=== PATIENT | male | born 1995 | race Caucasian/White ===

== ENCOUNTER 2024-10-15 20:51 | Emergency (ER) | payer SELFPAY ==
--- OUTSIDE RECORDS SUMMARY | 2024-10-15 20:54 | XMS REPORT | Continuity of Care Document ---
Author Name Unknown Address [address] [place] [address] [facility] Address [address] [facility] [address] [place] [address] Care Team Providers Care Cad Developer Name Role Phone Pcp, Patient Does Not Have A Primary Care Physic lucy MEI HENNING Attending Clinician UnaKAYLI Costa Attending Clinician Unavailabl e LAB47 Attending Clinician Unavailable WILSON HUTCHINSON Attending Clinician Unavailable Campaigns, Generic Provider Attending Clinician Unavailable Jay Jay Sanon Attending Clinician [phone] Bertha Gilbert Attending Clinician Unknown, Attending Attending Clinician Unavailab BERTHA Vega Attending Clinician Unavailable Frank Montenegro Attending Clinician [phone] FRANK CROCKER Attending Clinician Unavailable Merissa Attending Clinician Unavailable Merissa Admitting Clinician Unavailable Payers Payer Name Policy Type Policy Number Effective Date Expirati on Date Source [employer] 2 [id number] 00:00:00 [facility] [id number] 2005 00:00:00 Problems Condition Name Condition Details Condition Category Status Onset Date Resolution Date Last Treatment Date Treating Clinician Comments Source Vasculitis Vasculitis Disease Active 09-03 00:00: 00 Domitila dunn Allergies, Adverse Reactions, Alerts Allergy Name Allergy Type Status Severity Reaction(s) Onset Date Inactive Date Treating Clinician Comments Source Penicill ins Propensi ty to adverse reaction s Active Hives 09-03 00:00: 00 Domitila Cruza mona PENICILL IN DRUG INGREDI Active High Hives 420 00:00: 00 [facility] Penicill in Propensi ty to adverse reaction s Active Hives 06-27 00:00: 00 [facility] PENICILL INS Allergy to substanc e Active Mild to moderate Hives [facility] NO KNOWN ALLERGIE S Drug Class Active [facility] Social History Social Habit Start Date Stop Date Quantity Comments Source Sexual orientation Georgette ren iBll - External History of Social function 2024-09-15 00:00:00 2024-09-15 00:00:00 Domitila Khan - External Sex 2024-09-01 12:44:11 2024-09-01 12:44:11 Male (finding) Domitila Khan - External History of tobacco use 2024-07-22 00:00:00 Cigarette Smoker Domitila Khan - External Exposure to SARS-CoV-2 (event) 2022-06-17 00:00:00 2022-06-27 13:28:00 Not sure [facility] Sex assigned at 1995 00:00:00 1995 00:00:00 Domitila Cerrato External Smoking Status Start Date Stop Date Source Tobacco smoking consumption unknown [facility] Ex-smoker 2024-09-03 00:00:00 2024-09-03 00:00:00 Domitila Khan - External Medications Ordered Medication Name Filled Medication Name Start Date Stop Date Current Medication? Ordering Clinician Indication Dosage Frequency Signature (SIG) Comments Components Source predniSONE (DELTASONE) 10 MG oral tablet 09-15 00:00: 00 Yes [id number] Take 5 tablets for 8 days, then take 4 tablets daily for 8 days, then take 3 tablets daily for 8 days, then take 2 tablets daily for 8 days, then take 1 tablet daily for 8 days.. Domitila dunn Mupirocin (BACTROBAN) 2 % apply externally Ointment 09-15 00:00: 00 Yes [id number] Apply to affected areas. Domitila dunn predniSONE (DELTASONE) 20 MG oral tablet 09-09 00:00: 00 09-17 04:59 :00 Yes [id number] Take 2 tablets (40 mg total) by mouth daily for 3 days, THEN 1 tablet (20 mg total) daily for 2 days, THEN 0.5 tablets (10 mg total) daily for 2 days. Domitila dunn NaCl 0.9% (NS) bolus infusion 1,000 mL 08-24 07:15: 00 08-24 07:23 :00 No 1000mL at 999 mL/hr, 1,000 mL, IV Infusion, ONCE, 1 dose, On Fri08/24/24 at 0215, ALVERTO [facility] ketorolac (TORADOL) injection 30 mg 08-24 07:00: 00 08-24 06:28 :00 No 30mg 30 mg, Slow IV Push, ONCE, 1 dose, On Fri08/24/24 at 0200, Routine [facility] methylPREDN ISolone sod succ (SOLU-MEDRO L (PF)) injection 80 mg 08-24 06:30: 00 08-24 06:29 :00 No 80mg 80 mg, Intravenou s, ONCE, 1 dose, [facility] Fri08/24/24 [facility] 0130[facility] mg tablet 08-24 00:00: 00 08-30 04:59 :00 Yes [id number] 50mg Take 1 tablet by mouth in the morning for 5 days. [facility] Doxycycline Monohydrate 100 MG oral Capsule 08-23 00:00: 00 09-09 00:00 :00 No take one (1) capsule(s) by mouth twice a day 10 days. Domitila dunn predniSONE (DELTASONE) 20 MG oral tablet 06-22 00:00: 00 09-09 00:00 :00 No 40mg QD Take 2 tablets (40 mg total) by mouth daily. Domitila Khan - Externa l ketorolac (TORADOL) injection 30 mg 08-05 16:56: 00 08-05 17:08 :00 No [id number] 30mg 30 mg, Intramuscu lar, ONCE, 1 dose, On Fri08/06/23 at 1200, Routine [facility] methocarbam oL 500 mg tablet 08-05 00:00: 00 08-11 04:59 :00 No [id number] 500mg Take 1 tablet by mouth 4 (four) times daily as needed for Pain (scale 7-10) for up to 5 days. [facility] azithromyci n 500 mg tablet 06-27 00:00: 00 07-03 04:59 :00 No [id number] 500mg Take 1 tablet by mouth in the morning for 5 days. [facility] escitalopra m 10 mg tablet TAKE 1 TABLET BY MOUTH EVERY DAY escitalopra m 10 mg tablet TAKE 1 TABLET BY MOUTH EVERY DAY No escitalopr am 10 mg tablet TAKE 1 TABLET BY MOUTH EVERY DAY [facility] escitalopra m 5 mg tablet Take 1 tablet every day by oral route for 30 days. escitalopra m 5 mg tablet Take 1 tablet every day by oral route for 30 days. No escitalopr am 5 mg tablet Take 1 tablet every day by oral route for 30 days. [facility] Vital Signs Vital Name Observation Time Observation Value Comments S ource Systolic blood pressure 2024-09-09 15:51:00 112 mm[Hg] Domitila pike - External Diastolic blood pressure 2024-09-09 15:51:00 80 mm[Hg] Domitila pike - External Heart rate 2024-09-09 15:51:00 88 /min Jared Khan - External Body temperature 2024-09-09 15:51:00 36.83 Vita Domitila Khan - External Respiratory rate 2024-09-09 15:51:00 18 /min Domitila Khan - External Body height 2024-09-09 15:51:00 175.3 cm Gila ey Seybold - External Body weight 2024-09-09 15:51:00 97.07 kg Gila ey Seybold - External BMI 2024-09-09 15:51:00 31.60 kg/m2 Gila ey Seybold - External Oxygen saturation in Arterial blood by Pulse oximetry 2024-09-09 15:51:00 98 /min Domitila Stevensono ld - External Systolic blood pressure 2024-09-03 14:50:00 124 mm[Hg] Domitila Mitchellybo ld - External Diastolic blood pressure 2024-09-03 14:50:00 86 mm[Hg] Domitila Mitchellybo ld - External Heart rate 2024-09-03 14:50:00 80 /min Jared irvin Seybold - External Body temperature 2024-09-03 14:50:00 36.61 Vita Domitila Mitchellybold - External Respiratory rate 2024-09-03 14:50:00 18 /min Domitila Mitchellybold - External Body height 2024-09-03 14:50:00 175.3 cm Glia king Seybold - External Body weight 2024-09-03 14:50:00 97.523 kg Gila king Seybold - External BMI 2024-09-03 14:50:00 31.75 kg/m2 Gila king Seybold - External Oxygen saturation in Arterial blood by Pulse oximetry 2024-09-03 14:50:00 99 /min Domitila Stevensono ld - External Systolic blood pressure 2024-08-24 07:22:00 154 mm[Hg] [facility] Diastolic blood pressure 2024-08-24 07:22:00 117 mm[Hg] [facility] Heart rate 2024-08-24 07:22:00 72 /min [facility] Body temperature 2024-08-24 07:22:00 36.67 Vita [facility] Respiratory rate 2024-08-24 07:22:00 17 /min [facility] Oxygen saturation in Arterial blood by Pulse oximetry 2024-08-24 07:22:00 99 /min [facility] Body height 2024-08-24 05:44:00 175.3 cm [facility] Body weight 2024-08-24 05:44:00 97.523 kg [facility] BMI 2024-08-24 05:44:00 31.75 kg/m2 [facility] Systolic blood pressure 2023-08-06 16:26:00 135 mm[Hg] [facility] Diastolic blood pressure 2023-08-06 16:26:00 82 mm[Hg] [facility] Heart rate 2023-08-06 16:26:00 70 /min [facility] Body temperature 2023-08-06 16:26:00 36.72 Vita [facility] Respiratory rate 2023-08-06 16:26:00 18 /min [facility] Body height 2023-08-06 16:26:00 175.3 cm [facility] Body weight 2023-08-06 16:26:00 98.431 kg [facility] BMI 2023-08-06 16:26:00 32.05 kg/m2 [facility] Oxygen saturation in Arterial blood by Pulse oximetry 2023-08-06 16:26:00 100 /min [facility] Systolic blood pressure 2022-06-27 18:36:00 133 mm[Hg] [facility] Diastolic blood pressure 2022-06-27 18:36:00 86 mm[Hg] [facility] Heart rate 2022-06-27 18:36:00 73 /min [facility] Body temperature 2022-06-27 18:36:00 37 Vita [facility] Respiratory rate 2022-06-27 18:36:00 16 /min [facility] Body height 2022-06-27 18:36:00 175 cm [facility] Body weight 2022-06-27 18:36:00 94.49 kg [facility] BMI 2022-06-27 18:36:00 30.85 kg/m2 [facility] Oxygen saturation in Arterial blood by Pulse oximetry 2022-06-27 18:36:00 99 /min [facility] Procedures Procedure Date / Time Performed Performing Clinician Source COMP. METABOLIC PANEL ([id number]) 2024-08-24 06:20:00 Jay Jay Villalta [facility] SEDIMENTATION RATE 2024-08-24 06:20:00 Jay Jay Villalta [facility] CBC WITH DIFF 2024-08-24 06:20:00 Jay Jay Villalta [facility] PROTHROMBIN TIME / INR 2024-08-24 06:20:00 Minda Villalta cca [facility] ACTIVATED PARTIAL THRMPLAS COLLIN 2024-08-24 06:20:00 Jay Jay Villalta [facility] RAPID STREP SCREEN FOR GROUP A 2024-08-24 06:20:00 Jay Jay Villalta [facility] POCT URINALYSIS 2023-08-06 17:20:00 [facility] 2022-06-27 18:41:00 Unknown, Atte nding [facility] Encounters Start Date/Time End Date/Time Encounter Type Admission Type Attending [facility] Care Facility Care Department Encounter ID Source 2025-01-05 13:30:00 2025-01-05 13:30:00 Outpatient EMI HENNING [id number] [facility] 2024-11-24 13:30:00 2024-11-24 13:30:00 Outpatient KAYLI GARCIA [id number] [facility] 2024-10-27 14:00:00 2024-10-27 14:00:00 Outpatient EMI HENNING [id number] [facility] 2024-09-15 11:40:00 2024-09-15 11:40:00 Outpatient LAB47 DOMITILA NIEVES [id number] Domitila [facility] 2024-09-15 11:00:00 2024-09-15 11:00:00 Outpatient [facility]ENN[facility] [id number] [facility] 2024-09-09 11:00:00 2024-09-09 11:00:00 Outpatient WILSON HUTCHINSON [id number] [facility] 2024-09-03 10:00:00 2024-09-03 10:00:00 Outpatient WILSON HUTCHINSON [id number] Domitila Khan 2024-09-03 00:00:00 2024-09-03 00:00:00 Outpatient WILSON HUTCHINSON [id number] Domitila Khan 2024-09-01 00:00:00 2024-09-01 11:04:02 Letter (Out) Campaigns, Generic Provider Campaigns, Generic Provider [facility] (JYOTSNA) 1..840.114 350.1.13.10 [id number] [id number] [facility] 2024-08-24 00:46:00 2024-08-24 02:29:00 Emergency X Jay Jay Villalta [facility] 1..840.114 350.1.13.10 4.2.7.2.686 [id number] [facility] 2023-08-06 11:00:00 2023-08-06 11:20:00 Urgent Care Bertha Ortiz Unknown, Attending [facility] 1..840.114 350.1.13.10 4.2.7.2.686 [id number] [facility] 2023-08-06 11:00:00 2023-08-06 11:00:00 Outpatient R BERTHA ORTIZ [facility] [id number] [facility] 2022-06-27 14:20:00 2022-06-27 14:40:00 Urgent Care Frank Crocker Unknown, Attending [facility] 1..840.114 350.1.13.10 4.2.7.2.686 [id number] [facility] 2022-06-27 14:20:00 2022-06-27 14:20:00 Outpatient R FRANK CROCKER [facility] [id number] [facility] Results Test Description Test Time Test Comments Results Result Co mments Source [id number][facility]2024-08-24 07:03:31* Test Item Value Reference Range Interpretation Comme nts NA (test code = 1761213850) 140 mmol/L 135-145 K (test code = 7651419480) 4 mmol/L 3.5-5.0 CL (test code = 9197267489) 105 mmol/L 98-108 CO2 TOTAL (test code = 8329092158) 26 mmol/L 23-31 AGAP (test code = 0285677613) 9 2-16 BUN (test code = 9237529775) 17 mg/dL 7-23 GLUCOSE (test code = 5132082227) 99 mg/dL 70-110 CREATININE (test code = 2160-0) 0.91 mg/dL 0.60-1.25 TOTAL BILI (test code = 7731092439) 0.5 mg/dL 0.1-1.1 CALCIUM (test code = 2048125234) 9.3 mg/dL 8.6-10.6 T PROTEIN (test code = 8572586021) 7.7 g/dL 6.3-8.2 ALBUMIN (test code = 7162323352) 4.6 g/dL 3.5-5.0 ALK PHOS (test code = 8305804855) 83 U/L 34-122 ALTv (test code = 1742-6) 19 U/L 5-50 AST(SGOT) (test code = 3279465322) 18 U/L 13-40 eGFR (test code = 37762-4) 116.3 mL/min/1.73m2 CKD-EPI eGFR (20 21). Assuming creatinine has been stable day-to-day for at least three months, the eGFR indicates Category G1 (>= 90 mL/min/1.73 m2) [facility] / [id number] 07:00:09* Test Item Value Reference Range Interpretation Comme nts PROTIME PATIENT (test code = 5964-2) 11.7 10.1-12.6 INR (test code = 6301-6) 1 <=4.5 Normal INR <1.1; Warfarin Therapeutic range 2.0 to 3.0 or 2.5 to 3.5, depending upon the indications. Lab Interpretation (test code = 05889-4) Normal [facility] [id number] 07:00:09* Test Item Value Reference Range Interpretation Comme nts APTT Patient (test code = 3173-2) 34 26-36 JOAQUINA (test code = JOAQUINA) The [facility] patient population mean normal value for aPTT is 30 seconds. Lab Interpretation (test code = 34446-3) Normal [facility] [id number] 06:50:26* Test Item Value Reference Range Interpretation Comme nts WBC (test code = 6690-2) 9.91 4.20-10.70 RBC (test code = 789-8) 4.85 4.26-5.52 HGB (test code = 718-7) 14.3 g/dL 12.2-16.4 HCT (test code = 4544-3) 42.1 % 38.4-49.3 MCV (test code = 787-2) 86.8 fL 81.7-95.6 MCH (test code = 785-6) 29.5 pg 26.1-32.7 MCHC (test code = 786-4) 34 g/dL 31.2-35.0 RDW-SD (test code = 19633-5) 38.9 fL 38.5-51.6 RDW-CV (test code = 788-0) 12.3 % 12.1-15.4 PLT (test code = 777-3) 309 150-328 MPV (test code = 36876-4) 10.9 fL 9.8-13.0 NRBC/100 WBC (test code = 8408405586) 0 0.0-10.0 NRBC x10^3 (test code = 7174840065) See_Comment [Automated me ssage] The system which generated this result transmitted reference range: 10*3/?L. The reference range was not used to interpret this result as normal/abnormal. GRAN MAT (NEUT) % (test code = 770-8) 56.3 % IMM GRAN % (test code = 2295818193) 0.2 % LYMPH % (test code = 736-9) 32.3 % MONO % (test code = 5905-5) 7.9 % EOS % (test code = 713-8) 2.6 % BASO % (test code = 706-2) 0.7 % GRAN MAT x10^3(ANC) (test code = 4683297229) 5.58 10*3/uL 1.99-6.95 IMM GRAN x10^3 (test code = 7414025413) 0.00-0.06 LYMPH x10^3 (test code = 731-0) 3.2 10*3/uL 1.09-3.23 MONO x10^3 (test code = 742-7) 0.78 10*3/uL 0.36-1.02 EOS x10^3 (test code = 711-2) 0.26 10*3/uL 0.06-0.53 BASO x10^3 (test code = 704-7) 0.07 10*3/uL 0.01-0.09 [facility] Ur[facility] W Specific [id number] 17:20:00* Test Item Value Reference Range Interpretation Comme nts POCT U SP GRAV (test code = 3255) 1.015 mg/dl 1.005-1.025 POCT PH U (test code = 3254) 5 mg/dl 5-8 POCT U LEUK EST (test code = 3263) NEGATIVE Negative - Negative POCT U NIT (test code = 3262) NEGATIVE Negative - Negative POCT U PROT (test code = 3259) TRACE Negative - Negative POCT U GLU (test code = 3256) NORMAL Negative - Negative POCT U KETONE (test code = 3258) NEGATIVE Negative - Negative POCT U UROBILI (test code = 3260) NORMAL 0.2-1 POCT U BILI (test code = 3261) NEGATIVE Negative - Negative POCT U BLD (test code = 3257) NEGATIVE Negative - Negative POCT U COLOR (test code = 3266) POCT U APPEAR (test code = 3267) JOAQUINA (test code = JOAQUINA) accurate developme nt and interpretation of all internal controls Lab Interpretation (test code = 67754-3) [facility] MO[facility] [id number] 18:44:53* Test Item Value Reference Range Interpretation Comme nts POCT Molecular Strep (test c ode = 21506-0) Positive Negative A Lab Interpretation (test cod e = 00287-6) Abnormal [facility] Notes Date/Time Note Provider Source 2024-09-15 11:13:17 Chief Complaint Patient presents with Skin Problem Mariangel Evens Mariangel [facility] 2024-09-09 10:55:12 Chief Complaint Patient presents with Follow-up Needs to get work clearance. Adia Pagan LVN [facility] 2024-09-03 09:53:46 Chief Complaint Patient presents with ER F/U ER follow up vasculitis. Adia Pagan LVN T [facility] 2024-08-24 02:23:59 Pt given printed and verbal discharge instructions regarding vasculitis limited to skin Prescriptions provided: predniSONE 50 mg tablet Pt verbalized understanding of instructions, pt awake alert oriented, resp reg unlabored, skin w/d, color appropriate for race, moves all ext well,pt encouraged to follow up with pcp Advised to seek medical attention for new/prolonged/worsening of symptoms No adverse reaction to meds given in ER noted upon discharge PIV d'cd, dressing to site, catheter in tact. Awake, alert oriented, resp reg unlabored, skin w/d, pt leaving amb with steady gait, in no apparent distress Liana Vega RN [facility] 2024-08-24 00:43:31 Patient comes in with a rash to both lower legs that started on Friday of last week. Patient now reports they are itching. Skin p/w/d, rr equla and non labored. A&Ox4. Seen at today, and given doxycycline, patient took 2 today but it is not getting better. ALIAT Tatyana Snider RN [facility]
[2024-10-15] MEDS ORDERED: NA CHLORIDE 0.9% 1,000 ML ONE (21:16)
[2024-10-15 21:41] LABS: Absolute Lymphocytes (CBC) 0.9 K/uL (0.7-4.9); Hematocrit 43.7 % (39.6-49.0); Hemoglobin 15.1 g/dL (13.6-17.9); MCH 29.1 pg (27.0-35.0); MCHC 34.6 g/dL (32.0-36.0); MCV 84.2 fL (80-100); MPV 8.4 fL (7.6-11.3); Nucleated RBC Absolute Count 0.0 (0-0); Nucleated Red Blood Cells % 0.1 % (0-0); RBC Red Blood Cell Count 5.20 M/uL (4.33-5.43); White Blood Count 12.20 thou/uL (4.3-10.9)
[2024-10-15 21:50] LABS: Urine Microscopic Reflex YN NO UMIC
[2024-10-15 22:05] LABS: ALT/SGPT 32 U/L (16-61); Albumin 3.9 g/dL (3.4-5.0); Albumin/Globulin Ratio 1.1 (1.1-1.8); Alkaline Phosphatase 64 U/L (45-117); Anion Gap 10.5 mEq/L (5.0-15.0); BUN Blood Urea Nitrogen 18 mg/dL (7-18); Globulin 3.5 g/dL (2.3-3.5); Glucose Level 119 mg/dL (74-106); Lipase 63 U/L (13-75); Potassium 4.5 mEq/L (3.5-5.1)
[2024-10-15 22:14] LABS: AST/SGOT < 10 U/L (15-37)
--- NOTE | 2024-10-15 22:31 | RAD REPORT ---
EXAMINATION: CT ABDOMEN AND PELVIS WITHOUT CONTRAST CLINICAL INDICATION: FLANK PAIN TECHNIQUE: CT abdomen and pelvis was performed, without IV contrast, as per department protocol. Axia l, sagittal and coronal reconstructions were obtained. One or more of the following dose reduction techniques were used: Automated exposure control, adjustment of the mA and kV according to the patien t size, and iterative reconstruction. Unless otherwise specified, incidental findings do not require dedicated imaging follow-up. COMPARISON: No prior exam. FINDINGS: The lack of intravenous contrast limits the sensitivity of this exam for evaluation of solid visceral organs, vascular structures, and retroperitoneum. LOWER CHEST: The visualized lung bases are clear. LIVER:Normal in size and contour. No focal lesion. Grossly unremarkable gallbladder. SPLEEN: Normal size. No focal lesion. PANCREAS: No mass, ductal dilation, or maynor-pancreatic fluid. ADRENALS: Normal; no mass. KIDNEYS AND URETERS: Normal size and contour. No hydronephrosis. URINARY BLADDER: Normal contour. GASTROINTESTINAL TRACT: No evidence of bowel obstruction, significant free fluid, free air or abscess . APPENDIX: Normal appendix. LYMPH NODES: No lymphadenopathy. MUSCULOSKELETAL: Mild multilevel spinal degenerative changes. ADDITIONAL FINDINGS: Small fat-containing umbilical hernia. IMPRESSION: No acute or concerning abnormalities in the abdomen or pelvis, with evaluation limited by lack of IV contrast.
[2024-10-15] MEDS ORDERED: KETOROLAC 30 MG/ML INJ ONE (23:00)
--- NOTE | 2024-10-15 23:14 | ER ---
Nurse's Notes [facility] Name: Bryan Yanes Age: 29 yrs Sex: Male : 1995 Arrival Date: 10/15/2024 Time: 20:51 Bed 6 Private MD: Diagnosis: Low back pain Presentation: 10/15 21:05 Coronavirus screen: Vaccine status: Patient reports receiving the 2nd dose of the covid kd3 vaccine. Ebola Screen: No symptoms or risks identified at this time. Initial Sepsis Screen: Does the patient meet any 2 criteria? No. Patient's initial sepsis screen is negative. Does the patient have a suspected source of infection? No. Patient's initial sepsis screen is negative. Risk Assessment: Do you want to hurt yourself or someone else? Patient reports no desire to harm self or others. Onset of symptoms was October 14, 2024. 21:05 Method Of Arrival: Ambulatory kd3 21:05 Acuity: KENNETH 3 kd3 21:06 Chief complaint: Patient states: I had been dealing with a kidney infection, my kd3 automation consultant said i have a kidney infection based on WBC in my urine. I have been on prednisone. Yesterday i started having pain in my lower back. Triage Assessment: 21:05 General: Appears uncomfortable, Behavior is calm, cooperative. Pain: Complains of pain kd3 in left low back and right low back Pain radiates to right lower quadrant and left lower quadrant. Musculoskeletal: Circulation, motion, and sensation intact. Historical: - Allergies: 21:05 PENICILLINS; kd3 - Immunization history:: Adult Immunizations up to date. - Infectious Disease History:: Denies. - Social history:: Smoking status: Reported history of juuling and/or vaping. Screenin:20 [facility] ED Fall Risk Assessment (Adult) History of falling in the last 3 months, lg3 including since admission No falls in past 3 months (0 pts) Confusion or Disorientation No (0 pts) Intoxicated or Sedated No (0 pts) Impaired Gait No (0 pts) Mobility Assist Device Used No (0 pt) Altered Elimination No (0 pt) Score/Fall Risk Level 0 - 2 = Low Risk Oriented to surroundings, Maintained a safe environment, Educated pt \T\ family on fall prevention, incl call for assistance when getting out of bed, Assessed \T\ reinforced patient's understanding of fall precautions. Abuse screen: Denies threats or abuse. Denies injuries from another. Nutritional screening: No deficits noted. Tuberculosis screening: No symptoms or risk factors identified. Assessment: 21:20 General: Appears in no apparent distress. comfortable, Behavior is calm, cooperative. lg3 Pain: Complains of pain in right low back and left low back Pain currently is 6 out of 10 on a pain scale. Quality of pain is described as stabbing. Neuro: No deficits noted. Pierre Agitation-Sedation Scale (RASS): 0 - Alert and Calm Level of Consciousness is awake, alert, obeys commands, Oriented to person, place, time, situation. Cardiovascular: No deficits noted. Denies chest pain, shortness of breath, Capillary refill < 3 seconds Clubbing of nail beds is absent JVD is absent Patient's skin is warm and dry. Respiratory: No deficits noted. Airway is patent Respiratory effort is even, unlabored, Respiratory pattern is regular, symmetrical. GI: No deficits noted. No signs and/or symptoms were reported involving the gastrointestinal system. Abdomen is round non-distended. : No signs and/or symptoms were reported regarding the genitourinary system. Urine is clear, Denies burning with urination. EENT: No deficits noted. No signs and/or symptoms were reported regarding the EENT system. Derm: No deficits noted. No signs and/or symptoms reported regarding the dermatologic system. Skin is intact, is healthy with good turgor, Skin is dry, Skin is normal, Skin temperature is warm. Musculoskeletal: Circulation, motion, and sensation intact. Range of motion: intact in all extremities, Reports pain in right low back and left low back. 22:22 Reassessment: Patient appears in no apparent distress at this time. No changes from lg3 previously documented assessment. Patient and/or family updated on plan of care and expected duration. Pain level reassessed. Patient is alert, oriented x 3, equal unlabored respirations, skin warm/dry/pink. Vital Signs: 21:04 BP 140 / 98; Pulse 79; Resp 18; Temp 97.9(TE); Pulse Ox 96% ; kd3 22:22 BP 137 / 91; Pulse 71; Resp 17 S; Pulse Ox 98% on R/A; lg3 23:42 BP 129 / 77; Pulse 68; Resp 14; Pulse Ox 99% on R/A; km10 [place] Coma Score: 23:42 Eye Response: spontaneous(4). Motor Response: obeys commands(6). Verbal Response: km10 oriented(5). Total: 15. ED Course: 20:55 Patient arrived in ED. al6 20:56 Valencia Johnson FNP-C [facility]. kb 20:56 Yoseph Servin MD is Attending Physician. kb 21:05 Triage completed. kd3 21:05 Arm band placed on right wrist. kd3 21:17 Beena Perez, KASSY is Primary Nurse. km10 21:20 Patient has correct armband on for positive identification. Placed in gown. Bed in low lg3 position. Call light in reach. Side rails up X 1. Client placed on continuous cardiac and pulse oximetry monitoring. NIBP monitoring applied. Door closed. Noise minimized. Warm blanket given. Pillow given. 21:24 Initial lab(s) drawn, by ED staff, sent to lab. Urine collected: clean catch specimen. lg3 Inserted saline lock: 20 gauge in right antecubital area, using aseptic technique. Blood collected. Flushed with 10 mL NS. 21:25 UA Rfx Chris Cult if indicated Sent. lg3 21:25 CBC with Diff Sent. lg3 21:25 CMP Sent. lg3 21:25 Lipase Sent. lg3 22:26 CT Stone Protocol In Process Unspecified. EDMS 23:36 No provider procedures requiring assistance completed. IV discontinued, intact, km10 bleeding controlled, No redness/swelling at site. Pressure dressing applied. 23:38 Provided Education on: plan of care. km10 Administered Medications: 21:25 Drug: NS 0.9% IV 1000 ml IV at 1 bolus Per protocol; to be given as a bolus over 60 lg3 minutes Route: IV; Rate: 1 bolus; Site: right antecubital; 22:23 Follow up: Response: No adverse reaction; IV Status: Completed infusion; IV Intake: lg3 1000ml 23:05 Drug: Ketorolac IVP 15 mg IVP once Route: IVP; Site: right antecubital; km10 23:36 Follow up: Response: No adverse reaction; Pain is decreased km10 Medication: 21:20 VIS not applicable for this client. lg3 Intake: 22:23 IV: 1000ml; Total: 1000ml. lg3 Outcome: 23:12 Discharge ordered by . hilton 23:37 Discharged to home ambulatory, km10 23:37 Condition: stable 23:37 Discharge instructions given to patient, Instructed on discharge instructions, follow up and referral plans. medication usage, Demonstrated understanding of instructions, follow-up care, medications, Prescriptions given X 10/16 00:09 Patient left the ED. lg3 Signatures: Dispatcher [employer] EDMS Valencia Johnson, HEARINGS REPORTER-C HEARINGS REPORTER-CkAva Fisher, RN RN lg3 Evelyn Noonan, RN RN kd3 Alayna N[place] al6 Beena Perez, RN RN km10
--- NOTE | 2024-10-15 23:14 | EDPHYS ---
Physician Documentation [facility] Name: Bryan Yanes Age: 29 yrs Sex: Male : 1995 Arrival Date: 10/15/2024 Time: 20:51 Bed 6 Private MD: ED Physician Yoseph Servin HPI: 10/15 23:50 This 29 yrs old Male presents to ER via Ambulatory with complaints of Back Pain. kb 23:50 Pt is a 29 year old male who presents for pain to low back that started yesterday. 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 Denies urinary symptoms, n/v/d, fever.. Historical: - Allergies: 21:05 PENICILLINS; kd3 - Immunization history:: Adult Immunizations up to date. - Infectious Disease History:: Denies. - Social history:: Smoking status: Reported history of juuling and/or vaping. ROS: 23:38 Constitutional: As per HPI kb Exam: 23:47 Constitutional: This is a well developed, well nourished patient who is awake, alert, kb and in no acute distress. Head/Face: Normocephalic, atraumatic. ENT: Moist Mucous membranes Cardiovascular: Regular rate Respiratory: Respirations even and unlabored. No increased work of breathing. Talking in full sentences Abdomen/GI: Soft, non-tender. No distention Skin: Warm, dry with normal turgor. Normal color. MS/ Extremity: Pulses equal, no cyanosis. Neurovascular intact. Full, normal range of motion. Neuro: Awake and alert, GCS 15, oriented to person, place, time, and situation. 23:47 Back: pain, that is moderate, of the low back area, ROM is normal, Vital Signs: 21:04 BP 140 / 98; Pulse 79; Resp 18; Temp 97.9(TE); Pulse Ox 96% ; kd3 22:22 BP 137 / 91; Pulse 71; Resp 17 S; Pulse Ox 98% on R/A; lg3 23:42 BP 129 / 77; Pulse 68; Resp 14; Pulse Ox 99% on R/A; km10 [place] Coma Score: 23:42 Eye Response: spontaneous(4). Motor Response: obeys commands(6). Verbal Response: km10 oriented(5). Total: 15. MDM: 20:56 Medical Screening Exam initiated kb 23:48 Differential diagnosis: Pyelonephritis vertebral fracture, uti, kidney stone, strain, kb sciatica. Data reviewed: vital signs, nurses notes. Counseling: I had a detailed discussion with the patient and/or guardian regarding the historical points, exam findings, and any diagnostic results supporting the discharge/admit diagnosis, lab results, radiology results, the need for outpatient follow up, a family practitioner, to return to the emergency department if symptoms worsen or persist or if there are any questions or concerns that arise at home. 10/15 21:13 Order name: CBC with Diff kb 10/15 21:13 Order name: CMP; Complete Time: 22:41 kb 10/15 21:13 Order name: Lipase; Complete Time: 22:41 kb 10/15 21:13 Order name: UA Rfx Chris Cult if indicated; Complete Time: 21:54 kb 10/15 21:55 Order name: Manual Differential EDMS 10/15 21:56 Order name: CT Stone Protocol; Complete Time: 22:41 kb 10/15 21:13 Order name: IV Saline Lock; Complete Time: 21:25 kb 10/15 21:13 Order name: Labs collected and sent; Complete Time: 21:25 kb Administered Medications: 21:25 Drug: NS 0.9% IV 1000 ml IV at 1 bolus Per protocol; to be given as a bolus over 60 lg3 minutes Route: IV; Rate: 1 bolus; Site: right antecubital; 22:23 Follow up: Response: No adverse reaction; IV Status: Completed infusion; IV Intake: lg3 1000ml 23:05 Drug: Ketorolac IVP 15 mg IVP once Route: IVP; Site: right antecubital; km10 23:36 Follow up: Response: No adverse reaction; Pain is decreased km10 Disposition: 10/16 02:57 Co-signature as Attending Physician, Yoseph Servin MD I agree with the assessment sp4 and plan of care. I reviewed the patient's care provided by the Advanced Practice Provider and agree with the diagnosis and treatment plan. Disposition Summary: 10/15/24 23:12 Discharge Ordered Notes: Location: Home kb Condition: Stable kb Diagnosis - Low back pain kb Followup: kb - With: Emergency Department - When: As needed - Reason: Worsening of condition Followup: kb - With: Private Physician - When: 2 - 3 days - Reason: Recheck today's complaints, Continuance of care, Re-evaluation by your physician Discharge Instructions: - Discharge Summary Sheet kb - Acute Back Pain, Adult kb Forms: - Medication Reconciliation Form kb - Antibiotic Education kb - Prescription Opioid Use kb - Patient Portal Instructions kb - Leadership Thank You Letter kb Prescriptions: - orphenadrine citrate 100 mg Oral Tablet Sustained Release - take 1 tablet ORAL route 2 times per day As needed; 20 tablet; Refills: 0, kb Product Selection Permitted Signatures: Dispatcher [employer] EDMS Valencia Johnson, BASIM-C HEATER MECHANIC-Ava Lorenzo, RN RN lg3 Evelyn Noonan RN RN kd3 Yoseph Servin MD MD sp4 Beena Perez, RN RN km10 Corrections: (The following items were deleted from the chart) 10/15 21:14 21:14 CBC+H.LAB.BRZ ordered. EDMS EDMS 21:14 21:14 COMPREHENSIVE METABOLIC PANEL+C.LAB.BRZ ordered. EDMS EDMS 21:14 21:14 LIPASE+C.LAB.BRZ ordered. EDMS EDMS 21:14 21:14 UA Rfx Chris Cult if indicated+U.LAB.BRZ ordered. EDMS EDMS 23:55 23:50 Pt is a 29 year old male who presents for pain to low back that started . kb kb
[2024-10-16 00:13] VITALS: TEMP 97.9
[2024-10-16 00:17] VITALS: BP 129/77; O2SAT 99
[2024-10-16 00:38] LABS: Differential Total Cells Count 100; Segmented Neutrophils 88 % (40-80)
[2024-10-16 00:39] LABS: Blood Morphology Comment NOT SEEN (NOT SEEN)
== END 2024-10-16 00:09 | disposition home or self-care (01) ==
LOC: ER 20:51
DX: M54.50 Low back pain, unspecified (principal)
CPT/HCPCS: 36415; 74176; 76377; 80053; 81003; 83690; 85025; 96361; 96374; 99284; J7030